=== PATIENT | female | born 1985 | race Caucasian/White ===

== ENCOUNTER 2022-05-20 10:14 | Emergency (ER) | payer OTHER, SELFPAY ==
[2022-05-20 11:12] VITALS: BP 117/80; PULSE 86; RESP 16; TEMP 36.8; O2SAT 98
--- NOTE | 2022-05-20 12:31 | ED.URI ---
HPI - URI/Sore Throat General Chief Complaint: Upper Respiratory Infection Stated Complaint: Cough/Ear Pain Time Seen by Provider: 05/20/22 12:30 Source: patient and RN notes reviewed Mode of arrival: ambulatory Limitations: no limitations History of Present Illness HPI Narrative: 36-year-old female presents with concern for right ear pain that started last night, woke up similar night. Reports several day history of cough, nasal congestion, runny nose. Reports her family has similar symptoms. Reports she has been taking DayQuil and NyQuil. Denies drainage from the ear MD elicited complaint: cough and other (Ear pain) Related Data Home Medications Medication Instructions Recorded Confirmed guselkumab 100 mg/mL subcutaneous mg subcut 05/20/22 auto-injector (Organic To GofFreeze Tag) Allergies Allergy/AdvReac Type Severity Reaction Status Date / Time No Known Allergies Allergy Verified 04/27/19 10:17 Review of Systems Review of Systems: CONSTITUTIONAL: Denies malaise, chills, sweats, or fever. EYES: Denies visual changes, redness, or discharge. ENT: Reports rhinorrhea, congestion, right otalgia and sore throat. CARDIOVASCULAR: Denies chest pain, palpitations, or edema. RESPIRATORY: Reports cough. Denies dyspnea. GASTROINTESTINAL: Denies abdominal pain, nausea, vomiting, diarrhea SKIN: Denies rash or itching. MUSCULOSKELETAL: Denies myalgia. NEUROLOGIC: Denies headache. All systems reviewed & are unremarkable except as noted in HPI and below PMFSH Social History Social History (Updated 04/27/19 @ 10:47 by CRISTIAN Gomez) Smoking packs per day: 0.05 Smoking cigarettes per day: 1.0 Years smoked: 10 Smoking pack-years: 0.50 Smoking status: Current every day smoker Tobacco type: cigarettes Comments At time of signature, agree with nursing past medical, surgical, social and family history. There is no relevant family history pertinent to the presenting complaint Exam Narrative: GENERAL: Well-appearing, well-nourished, and in no acute distress. HEAD: Normocephalic EYES: PERRLA, conjunctivae clear ENT: Nares clear, turbinates edematous and erythematous, clear discharge. Mucous membranes moist. Left TM pearly arita with dull light reflex, right TM erythematous bulging; no tragal tenderness. Oropharynx not erythematous without lesions. Tonsils not enlarged and without exudate, no drooling, no hoarseness, no trismus, uvula midline. NECK: Supple. No lymphadenopathy CHEST: Clear to auscultation, breath sounds equal. No wheezing, rhonchi, rales, or stridor. No respiratory distress, speaks in full sentences. HEART: Regular rate and rhythm. No murmur heard. SKIN: Warm, dry, no rash. NEURO: Alert and oriented x3. PSYCH: Normal mood and affect Course Course Emergency Course: Patient is aware of diagnosis, understands and agrees to treatment plan. Anticipatory guidance given. Patient agrees to follow-up as directed and is aware of reasons to seek care at the emergency department. Portions of this record may have been created with voice recognition software Level of Care: Express Care Visit Vital Signs Vital signs: Vital Signs Temperature 98.2 F 05/20/22 11:12 Pulse Rate 86 05/20/22 11:12 Respiratory Rate 16 05/20/22 11:12 Blood Pressure 117/80 05/20/22 11:12 Pulse Oximetry 98 05/20/22 11:12 Oxygen Delivery Room Air 05/20/22 11:12 Temperature 98.2 F 05/20/22 11:12 Pulse Rate 86 05/20/22 11:12 Respiratory Rate 16 05/20/22 11:12 Blood Pressure 117/80 05/20/22 11:12 Pulse Oximetry 98 05/20/22 11:12 Oxygen Delivery Room Air 05/20/22 11:12 Reviewed. MDM - URI/Sore Throat MDM Narrative Medical decision making narrative: Differential diagnosis considered: Nichole virus, strep pharyngitis, allergic rhinitis, upper respiratory tract infection, sinusitis, rhinosinusitis, nasopharyngitis. viral pharyngitis, otitis media, otitis externa, pneumonia, bronchitis, viral cough
== END 2022-05-20 12:53 | disposition home or self-care (01) ==
PROVIDERS: Emergency Provider Nurse Practitioner
DX: H66.90 Otitis media, unspecified, unspecified ear (principal); J06.9 Acute upper respiratory infection, unspecified; F17.210 Nicotine dependence, cigarettes, uncomplicated
CPT/HCPCS: 99203; G0463